=== PATIENT | female | born 1945 | race Caucasian/White ===

== ENCOUNTER 2019-01-22 07:46 | Day surgery (SDC) | payer MEDICARE, OTHER ==
[2019-01-22] MEDS ORDERED: PROPOFOL 20 ML (11:33)
== END 2019-01-22 14:05 | disposition home or self-care (01) ==
LOC: GIL 07:46
DX: K21.0 Gastro-esophageal reflux disease with esophagitis (principal); K29.50 Unspecified chronic gastritis without bleeding; I10 Essential (primary) hypertension; I25.10 Atherosclerotic heart disease of native coronary artery without angina pectoris; E03.9 Hypothyroidism, unspecified
CPT/HCPCS: 43239; 88305; 88312